=== PATIENT | female | born 1965 | race Caucasian/White ===

== ENCOUNTER 2021-12-17 01:19 | Inpatient (IN) | payer MEDICAID, OTHER ==
[~2021-12-17] VITALS: Ht 167.6 cm; Wt 95.6 kg
[2021-12-17] MEDS ORDERED: dilTIAZem 25 MG/5 ML VIAL IV ONE ×2 (02:15→02:30)
[2021-12-17] MEDS ORDERED: dilTIAZem 125mg/125ml BAG KIT 125 ML IV ONE (02:30)
[2021-12-17] MEDS ORDERED: ONDANSETRON HCL 4 MG/2 ML VIAL IV ONE (02:45)
[2021-12-17 02:46] LABS: Eosinophils # (auto) 0.1 10 ^3/uL (0-0.8); Lymphocytes # (auto) 0.6 10 ^3/uL (0.4-5.4); Mean Corpuscular Hgb Conc. 33.7 g/dL (32.0-36.0); Red Blood Cells 4.37 10^6/uL (4.0-5.20); White Blood Cell 14.5 10^3/uL (4.4-10.8)
[2021-12-17 02:48] LABS: Basophils # (auto) 0 10 ^3/uL (0-0.2); Basophils % (auto) 0.2 % (0.0-2.0); Eosinophils % (auto) 0.4 % (0.0-7.0); Hematocrit 34.6 % (36.0-46.0); Hemoglobin 11.6 g/dL (12.2-16.2); Lymphocytes % (auto) 3.8 % (10.0-50.0); Mean Corpuscular Hemoglobin 26.6 pg (28.0-32.0); Mean Corpuscular Volume 79.1 fL (80.0-100.0); Monocytes # (auto) 0.6 10 ^3/uL (0-1.3); Monocytes % (auto) 4.1 % (0.0-12.0); Neutrophils # (auto) 13.3 10 ^3/uL (1.6-8.6); Neutrophils % (auto) 91.5 % (37.0-80.0); Red Cell Distribution Width 16.3 % (11.8-14.3)
[2021-12-17 03:08] LABS: Albumin 2.6 g/dL (3.4-5.0); BUN/Creatinine Ratio 22.6; Calcium 8.8 mg/dL (8.5-10.1); Potassium 3.5 mmol/L (3.5-5.1)
[2021-12-17 03:10] LABS: Total Protein 7.1 g/dL (6.4-8.2)
[2021-12-17] MEDS ORDERED: METOPROLOL TARTRATE 1MG/1ML-5ML VIAL IV ONE ×2 (03:45→05:15)
[2021-12-17] MEDS ORDERED: MORPHINE SULFATE INJ 2 MG/ml SYRG IV ONE (04:15)
[2021-12-17] MEDS ORDERED: AMIODARONE HCL 150 MG in D5W 5% 100 ML IV ONE (05:30)
[2021-12-17] MEDS ORDERED: AMIODARONE HCL (50 MG/ ML) 3 ML VIAL IV ONE (05:36)
[2021-12-17] MEDS ORDERED: NITROGLYCERIN 0.4 MG SL TAB SL PRN (06:00)
[2021-12-17] MEDS ORDERED: TEMAZEPAM 15 MG CAP PO PRN (06:00)
[2021-12-17] MEDS ORDERED: MORPHINE SULFATE INJ 2 MG/ml SYRG IV PRN (06:00)
[2021-12-17] MEDS ORDERED: SODIUM CHLORIDE 0.9% 500 ML IV ONE (06:15)
[2021-12-17] MEDS ORDERED: AMIODARONE 450mg/250ml AE 250 ML IV SCH (07:00)
[2021-12-17 09:25] LABS: Lactic Acid w/Reflex 2.3 mmol/L (0.4-2.0)
[2021-12-17] MEDS ORDERED: ENOXAPARIN SOD 40 MG/0.4 ML SYRINGE SC SCH (10:00)
[2021-12-17] MEDS: ASPirin 81 mg TAB PO SCH (10:04)
[2021-12-17] MEDS: PANTOPRAZOLE 40 MG TAB PO SCH (10:04)
[2021-12-17 10:09] LABS: Urine Bacteria MANY /hpf (None Seen); Urine Blood 1+ /uL (Negative); Urine Hyaline Cast FEW /lpf (0 - 2); Urine Mucus FEW (None Seen); Urine Specific Gravity 1.024 (1.001-1.035); Urine WBC 39 /hpf (0 - 5)
[2021-12-17] MEDS: ONDANSETRON HCL 4 MG/2 ML VIAL IV PRN ×3 (10:45→21:27)
[2021-12-17] MEDS: ACETAMINOPHEN 325 MG TAB PO PRN (12:10)
[2021-12-17] MEDS: HYDROcodone-ACET 5/325MG TAB PO PRN (15:49)
[2021-12-17] MEDS: AMIODARONE 450mg/250ml AE 250 ML IV SCH (16:21)
[2021-12-17 16:41] LABS: Amphetamine Screen, Urine NEGATIVE (NEGATIVE); Barbiturate Scree,Urine NEGATIVE (NEGATIVE); Benzodiazephine Screen, Urine NEGATIVE (NEGATIVE); Cannabinoid Screen, Urine NEGATIVE (NEGATIVE); Cocaine Screen, Urine NEGATIVE (NEGATIVE); Opiate Scree,Urine POSITIVE (NEGATIVE); Phencyclidine Screen, Urine NEGATIVE (NEGATIVE)
[2021-12-17 19:54] LABS: Cholesterol 130 mg/dL (< 200)
[2021-12-17 20:30] LABS: HDL Cholesterol 11 mg/dL (40-59); LDL Cholesterol 75 mg/dL (< 100); Triglycerides 215 mg/dL (< 150)
[2021-12-17] MEDS: ATORVASTATIN 20 MG TAB PO SCH (21:26)
[2021-12-17] MEDS: APIXABAN 5 MG TAB PO SCH (21:26)
[2021-12-17 23:25] VITALS: BP 95/51
[2021-12-18] MEDS: HYDROcodone-ACET 5/325MG TAB PO PRN ×2 (00:23→19:43)
[2021-12-18 00:56] VITALS: BP 95/51
[2021-12-18] MEDS: ALBUTEROL SULF 2.5 MG/0.5ML(0.5%) NEB SOLN NEB PRN ×2 (01:14→18:31)
[2021-12-18] MEDS: IPRATROPIUM BROM 0.5 MG/2.5ML INH SOL NEB PRN ×2 (01:14→18:31)
[2021-12-18 05:00] VITALS: BP 102/50
[2021-12-18] MEDS: AMIODARONE 450mg/250ml AE 250 ML IV SCH (05:57)
[2021-12-18 07:43] LABS: Basophils # (auto) 0 10 ^3/uL (0-0.2); Basophils % (auto) 0.3 % (0.0-2.0); Eosinophils # (auto) 0.3 10 ^3/uL (0-0.8); Eosinophils % (auto) 2.3 % (0.0-7.0); Hematocrit 37.2 % (36.0-46.0); Hemoglobin 12.1 g/dL (12.2-16.2); Lymphocytes # (auto) 0.6 10 ^3/uL (0.4-5.4); Lymphocytes % (auto) 4.8 % (10.0-50.0); Mean Corpuscular Hemoglobin 26.4 pg (28.0-32.0); Mean Corpuscular Hgb Conc. 32.5 g/dL (32.0-36.0); Mean Corpuscular Volume 81.3 fL (80.0-100.0); Monocytes # (auto) 0.5 10 ^3/uL (0-1.3); Monocytes % (auto) 4.2 % (0.0-12.0); Neutrophils # (auto) 10.3 10 ^3/uL (1.6-8.6); Neutrophils % (auto) 88.4 % (37.0-80.0); Red Blood Cells 4.57 10^6/uL (4.0-5.20); Red Cell Distribution Width 16.3 % (11.8-14.3); White Blood Cell 11.6 10^3/uL (4.4-10.8)
[2021-12-18 08:13] LABS: Albumin 2.4 g/dL (3.4-5.0); Calcium 8.5 mg/dL (8.5-10.1); Potassium 3.2 mmol/L (3.5-5.1)
[2021-12-18 08:18] LABS: BUN/Creatinine Ratio 23.9; Bilirubin, Total 0.8 mg/dL (0.2-1.0); Total Protein 7.2 g/dL (6.4-8.2)
[2021-12-18 09:00] VITALS: BP 115/57
[2021-12-18] MEDS: ASPirin 81 mg TAB PO SCH (09:24)
[2021-12-18] MEDS: PANTOPRAZOLE 40 MG TAB PO SCH (09:24)
[2021-12-18] MEDS: APIXABAN 5 MG TAB PO SCH ×2 (09:24→21:20)
[2021-12-18] MEDS ORDERED: METOPROLOL SUCCINATE XL 50 MG TAB PO ONE (11:45)
[2021-12-18 13:00] VITALS: BP 111/53
[2021-12-18] MEDS ORDERED: APIX5TAB PO (13:36)
[2021-12-18] MEDS ORDERED: AMIO200T4 PO (13:36)
[2021-12-18] MEDS ORDERED: CIPR-173 PO (13:36)
[2021-12-18] MEDS ORDERED: METO-6 PO (13:36)
[2021-12-18] MEDS ORDERED: levoFLOXacin 500MG 100 ML IV ONE (13:45)
[2021-12-18 16:37] VITALS: BP 112/59
[2021-12-18] MEDS: SOD CHL 0.9%/ KCL 20MEQ 1,000 ML IV SCH ×2 (21:14→23:45)
[2021-12-18] MEDS: AMIODARONE HCL 200 MG TAB PO SCH (21:19)
[2021-12-18] MEDS: ATORVASTATIN 20 MG TAB PO SCH (21:20)
[2021-12-18 22:00] VITALS: BP 83/62
[2021-12-19] MEDS: ACETAMINOPHEN 325 MG TAB PO PRN (04:30)
[2021-12-19 05:00] VITALS: BP 108/59
[2021-12-19 05:40] LABS: Potassium 3.5 mmol/L (3.5-5.1)
[2021-12-19 05:44] LABS: BUN/Creatinine Ratio 32.5; Calcium 8.5 mg/dL (8.5-10.1)
[2021-12-19 09:00] VITALS: BP 93/57
[2021-12-19] MEDS: PANTOPRAZOLE 40 MG TAB PO SCH (09:54)
[2021-12-19] MEDS: APIXABAN 5 MG TAB PO SCH (09:54)
[2021-12-19] MEDS: AMIODARONE HCL 200 MG TAB PO SCH (09:55)
[2021-12-19] MEDS ORDERED: levoFLOXacin 500MG 100 ML IV SCH (10:00)
[2021-12-19] MEDS ORDERED: METOPROLOL SUCCINATE XL 50 MG TAB PO SCH (10:00)
[2021-12-19] MEDS: SOD CHL 0.9%/ KCL 20MEQ 1,000 ML IV SCH (10:01)
[2021-12-19 12:50] VITALS: BP 106/53
[2021-12-19] MEDS ORDERED: SODIUM CHLORIDE 0.9% 250 ML IV ONE (13:00)
[2021-12-19 16:02] VITALS: BP 93/57
== END 2021-12-19 16:52 | disposition home or self-care (01) | DRG 190 ==
LOC: ER 01:19 → TELE 06:05 → TELE-WESTW 23:25
PROVIDERS: ADMIT Nurse Practitioner; ATTEND Hospitalist
PROC: 05HD33Z Insertion of Infusion Device into Right Cephalic Vein, Percutaneous Approach (ICD-10-PCS; principal; 2021-12-18)
PROC: B54MZZA Ultrasonography of Right Upper Extremity Veins, Guidance (ICD-10-PCS; 2021-12-18)
DX: I21.4 Non-ST elevation (NSTEMI) myocardial infarction (principal); E43 Unspecified severe protein-calorie malnutrition; I95.9 Hypotension, unspecified; I48.91 Unspecified atrial fibrillation; Z20.822 Contact with and (suspected) exposure to COVID-19; E66.01 Morbid (severe) obesity due to excess calories; N39.0 Urinary tract infection, site not specified; N18.9 Chronic kidney disease, unspecified; Z88.0 Allergy status to penicillin; Z88.2 Allergy status to sulfonamides; Z68.34 Body mass index [BMI] 34.0-34.9, adult; Z86.16 Personal history of COVID-19; Z72.89 Other problems related to lifestyle; Z79.01 Long term (current) use of anticoagulants
CPT/HCPCS: 36415; 71045; 80048; 80053; 80061; 80307; 81001; 83036; 83605; 83880; 84439; 84443; 84484; 85025; 93005; 93306; 94640; 96361; 96365; 96375; 96376; 99291; G0378; J1956; J2405; J7060

== ENCOUNTER 2024-08-28 15:02 | Emergency (ER) | payer MEDICAID ==
[~2024-08-28] VITALS: Ht 167.6 cm; Wt 135.0 kg
[~2024-08-28 15:02] MED LIST: AMIO200T13 PO; APIX5TAB PO; CIPR-173 PO; METO-6 PO
--- NOTE | 2024-08-28 16:58 | ED.PDOC ---
Musculoskeletal HPI Comments Year old female presented to the [facility] complaining of severe pain to the left leg after she bent she heard a snap and following by exquisite pain Chief Complaint: Lower Extremity Time Seen by MD: 15:09 Primary Care Provider: UNKNOWN Reviewed Notes: Nurses Notes, Medications, Allergies Allergies: Coded Allergies: Penicillins (Verified Allergy, Unknown, 12/17/21) Sulfa Antibiotics (Verified Allergy, Unknown, 12/17/21) Home Meds Active Scripts Apixaban Base (ELIQUIS) 5 Mg Tab, 5 MG PO BID, #90 TAB Prov:LI MONTES MD 12/18/21 Metoprolol Succinate (Toprol Xl) 50 Mg Tab, 0.5 TAB PO DAILY, #30 TAB 1 Refill Prov:LI MONTES MD 12/18/21 Amiodarone HCl (Amiodarone HCl) 200 Mg Tab, 200 MG PO DAILY@BREAKFAST, #15 TAB Prov:LI MONTES MD 12/18/21 Ciprofloxacin Hcl (Cipro) 500 Mg Tab, 1 TAB PO BID, #14 TAB Prov:LI MONTES MD 12/18/21 Information Source: Patient Mode of Arrival: Wheelchair Location: Left Extremity Location: Thigh Timing: Hours, Came on: Suddenly Severity: Moderate Able to Move Extremity: Yes Bear Weight: Limited Pain: Moderate, Severe Hand Dominance: Right Mechanism: No Trauma, Spontaneous DVT Risk Factors: NONE Last Tetanus: UTD Associated signs and symptoms: Thigh pain, Leg pain Past Medical History PAST MEDICAL HISTORY: Denies Surgical History: Denies all surgeries Surgical History (Other): Carpal tunnel syndrome BIG DATA ENGINEER History: Denies all BIG DATA ENGINEER Hx Family History Family History: Reviewed,noncontributory to illness Social History Smoker: Non-Smoker Alcohol: Denies ETOH Use Drugs: Denies Drug Use Lives In: Home Constitutional: denies: chills, diaphoresis, fatigue, fever, malaise, sweats, weakness, others EENTM: denies: blurred vision, double vision, ear bleeding, ear discharge, ear drainage, ear pain, ear ringing, eye pain, eye redness, hearing loss, mouth pain, mouth swelling, nasal discharge, nose bleeding, nose congestion, nose pain, photophobia, tearing, throat pain, throat swelling, voice changes, others Respiratory: denies: cough, hemoptysis, orthopnea, SOB at rest, shortness of breath, SOB with excertion, stridor, wheezing, others Cardiovascular: denies: chest pain, dizzy spells, diaphoresis, Dyspnea on exertion, edema, irregular heart beat, left arm pain, lightheadedness, palpitations, PND, syncope, others Gastrointestinal: denies: abdomen distended, abdominal pain, blood streaked bowels, constipated, diarrhea, dysphagia, difficulty swallowing, hematemesis, melena, nausea, poor appetite, poor fluid intake, rectal bleeding, rectal pain, vomiting, others Genitourinary: denies: abnormal vagina bleeding, burning, dyspareunia, dysuria, flank pain, frequency, hematuria, incontinence, pain, , vagina discharge, urgency, others Neurological: denies: dizziness, fainting, headache, left sided numbness, left sided weakness, numbness, paresthesia, pre-existing deficit, right sided num bness, right sided weakness, seizure, speech problems, tingling, tremors, weakness, others Musculoskeletal: reports: muscle pain, muscle stiffness; denies: back pain, gout, joint pain, joint swelling, neck pain, others Integumetry: denies: bruises, change in color, change in hair/nails, dryness, l aceration, lesions, lumps, rash, wounds, others Allergic/Immunocompromised: denies: Difficulty Healing, Frequent Infections, Hives, Itching, others Hematologic/Lymphatic: denies: anemia, blood clots, easy bleeding, easy bruising, swollen glands, others Endocrine: denies: excessive hunger, excessive sweating, excessive thirst, excessive urination, flushing, intolerance to cold, intolerance to heat, unexplained weight gain, unexplained weight loss, others Psychiatric: denies: anxiety, bipolar disorder, depression, hopeless, panic disorder, schizophrenia, sleepless, suicidal, others All Other Systems: Reviewed and Negative Physical Exam General Appearance: Moderate Distress, Obese HEENT: Normal ENT Inspection, PERRL/EOMI Neck: Full Range of Motion, Non-Tender, Normal, Normal Inspection Respiratory: Chest Non-Tender, Lungs Clear, No Accessory Muscle Use, No Respiratory Distress, Normal Breath Sounds Cardiovascular: No Edema, No JVD, No Murmur, No Gallop, Normal Peripheral Pulses, Regular Rate/Rhythm Breast Exam: Deferred Gastrointestinal: No Organomegaly, Non Tender, No Pulsatile Mass, Normal Bowel Sounds, Soft Genitalia: Deferred Pelvic: Deferred Rectal: Deferred Extremities: Decreased range of motion, No pedal edema, Swelling, Tender Musculoskeletal : Location: Left Extremity Location: Thigh Apperance: Limited ROM, Tenderness: Moderate, Other (Thigh) Neurologic: Alert, full stack java developer II-XII nml as Tested, No Motor Deficits, Normal Affect, Normal Mood, No Sensory Deficits Cerebellar Function: Normal Reflexes: NOT DONE Skin: Dry, Normal Color, Warm Peripheral Pulses: 1+ carotid (R), 1+ carotid (L) Lymphatic: No Adenopathy Was a procedure done? Was a procedure done?: No Differential Diagnosis EXT Differential Diagnosis: Strain, Neurovascular injury X-Ray, Labs, Meds, VS Vital Signs Date Time Temp Pulse Resp B/P (MAP) Pulse Ox O2 Delivery O2 Flow Rate FiO2 08/28/24 16:43 98.7 100 16 114/66 (82) 98 98.7 08/28/24 16:43 100 16 98 Room Air 08/28/24 15:10 98.7 100 16 114/66 (82) 98 98.7 X-Ray, Labs, Meds, VS Comment Course in the [employer] eventful Patient with severe pain to the posterior left thigh from bending The CT of the posterior thigh is normal no obvious injuries at this time Patient will be using an Jude wrap around the posterior thigh and possible crutches she will use hot soaks and if not better within few days she needs to follow up for possible MRI Time of 1ST Reevaluation: 18:05 Reevaluation 1ST: Unchanged Consultation: PCP Patient Education/Counseling: Diagnosis, Treatment, Prognosis, Need For Follow Up Family Education/Counseling: Diagnosis, Treatment, Prognosis, Need For Follow Up, Other ( at bedside) Departure 1 Departure Time of Disposition: 18:06 Impression: Primary Impression: Strain of posterior muscle of left thigh Disposition: 01 HOME / SELF CARE / HOMELESS Condition: Fair Additional Instructions: Local heat Sitz baths and follow up with your PCP e-Prescriptions Hydrocodone-Acetaminophen (Hydrocodone Bitartrate/AC 5-325 mg) 1 Tab Tab 1 TAB PO TID for 5 Days, #15 TAB Prov: ALEXIA ANTUNEZ MD 08/28/24 Diclofenac Sodium (Topical) (Diclofenac Sodium) 1 % Gel 1 % TD BID for 10 Days, #100 GEL Prov: ALEXIA ANTUNEZ MD 08/28/24 Diclofenac Potassium (Diclofenac Potassium) 50 Mg Tab 1 TAB PO TIDP for 10 Days, #30 TAB Prov: ALEXIA ANTUNEZ MD 08/28/24 Discharged With: Self Critical Care Note Critical Care Time?: No Stability Stability form required: No Heart Score Heart Score: Heart Score Response (Comments) Value History N/A 0 EKG N/A 0 Age 45-64 1 Risk Factors No known risk factors 0 Troponin N/A 0 Total 1 ALEXIA ANTUNEZ MD Aug 28, 2024 16:58
--- NOTE | 2024-08-28 17:46 | DVH ---
INDICATION: Possible ruptured tendon or triceps muscle posterior thigh COMPARISON: None TECHNIQUE: CT of the left femur was performed without contrast. Volume transverse images were obtain ed and reconstructed in multiple planes using bone and soft tissue algorithms. Radiation Dose Information: CT Dose: CTDI volume is 24.59 mGy. Dose-length product is 1332.93 mGy*cm FINDINGS: The alignment is normal. The joint spaces are normal. There is no fracture, dislocation or aggressive osseous lesion. There is no joint effusion. The soft tissues are normal. IMPRESSION: 1. No osseous fracture. 2. If ligamentous or tendinous injury is of clinical concern recommend MRI 3. All CT scans at this medical facility are performed using dose modulation techniques as appropriate t o a performed exam including the following: Automated exposure control was utilized; adjustment of th e MA and/or KV according to patient size; and use of iterative reconstruction technique. HS:Y
[2024-08-28] MEDS ORDERED: HYDR-4902 PO (18:11)
[2024-08-28] MEDS ORDERED: DICL50TA2 PO (18:11)
[2024-08-28] MEDS ORDERED: DICL1GEL73 TD (18:11)
[2024-08-28 18:20] VITALS: BP 120/79; PULSE 89; RESP 18; TEMP 98.9; O2SAT 100
== END 2024-08-28 18:21 | disposition home or self-care (01) ==
LOC: ER 15:06
DX: S76.812A Strain of other specified muscles, fascia and tendons at thigh level, left thigh, initial encounter (principal); Z88.0 Allergy status to penicillin; Z88.2 Allergy status to sulfonamides; X58.XXXA Exposure to other specified factors, initial encounter; Y93.89 Activity, other specified; Y92.89 Other specified places as the place of occurrence of the external cause; Y99.8 Other external cause status
CPT/HCPCS: 73700; 73706